=== PATIENT | female | born 1940 | race Caucasian/White ===

== ENCOUNTER → 2020-09-27 08:16 | Outpatient (CLI) | payer MEDICARE, SELFPAY ==
[2020-09-27 19:22] LABS: SARS-CoV-2 RNA PCR Negative
== END ==
PROVIDERS: PCP Internal Medicine; Visit Provider Internal Medicine Gastroenterology
DX: Z01.812 Encounter for preprocedural laboratory examination (principal); Z20.822 Contact with and (suspected) exposure to COVID-19
CPT/HCPCS: C9803; U0003; U0005

== ENCOUNTER 2020-09-30 01:41 | Day surgery (SDC) | payer MEDICARE, OTHER, SELFPAY ==
[2020-09-24 12:40] VITALS: BMI 24.5
--- NOTE | 2020-09-30 11:17 | WPDANESEPPF ---
Anes - Initial Pre Proc Eval Procedure: Operation Date: 09/30/20 11:30 Proposed Procedures p Screening Colonoscopy - Apolinar Martinez MD Date/Time: 09/30/20 11:17 Surgeon: Apolinar Martinez MD Pre Op Diagnosis: hx colon polyp Patient Data Age: 80 Gender: F Height: 5 ft 4 in Weight: 65 kg Allergies Allergy/AdvReac Type Severity Reaction Status Date / Time codeine Allergy Mild Other Verified 09/30/20 11:16 Home Medications Medication Instructions Recorded Confirmed Type aspirin 81 mg PO DAILY 09/24/20 09/30/20 History carvedilol 3.125 mg PO DAILY 09/24/20 09/30/20 History furosemide 20 mg PO DAILY 09/24/20 09/24/20 History losartan 25 mg PO BID 09/24/20 09/30/20 History Patient hx anesthesia problems: none Family hx anesthesia problems: none [facility] Past Medical History Medical History (Updated 09/30/20 @ 11:23 by Kd Gallegos MD) COPD (chronic obstructive pulmonary disease) HTN (hypertension) LITA (obstructive sleep apnea) Pacemaker Social History Social History Smoking packs per day: 1.5 Smoking cigarettes per day: 30.0 Years smoked: 24 Smoking pack-years: 36.00 Smoking status: Former smoker Tobacco type: cigarettes Living arrangements: alone Spiritual care concerns: No Anes - Eval Final PreProcedure Day of Procedure 09/30/20 11:17 Patient weight: overweight Heart: regular rate and rhythm (paced) Lungs: clear to auscultation Airway: Mallampati scale class II Neurological: alert and oriented Last oral intake: >/= 8 hours ASA classification: III Emergent: no Informed Consent: The patient's anesthetic plan and its attendant risks and benefits were discussed with the patient/family/POA. Questions were solicited and answers provided to the satisfaction of the patient/family/POA.
[2020-09-30 11:18] VITALS: BP 145/74; PULSE 94; RESP 18; TEMP 36.2; O2SAT 96; BMI 31.6
--- NOTE | 2020-09-30 11:39 | PM.HPGS ---
History of Present Illness History of Present Illness Consent: Risks, benefits, and alternatives have been discussed and questions answered. Patient agrees to proceed with procedure. Chief complaint: hx colon polyp Narrative: Anna Garrido is a 80 year old female referred for colon cancer screening. Review of Systems Review of Systems: All systems reviewed & are unremarkable except as noted in HPI and below PMFSH Past Medical History Medical History COPD (chronic obstructive pulmonary disease) HTN (hypertension) LITA (obstructive sleep apnea) Pacemaker Social History Social History Smoking packs per day: 1.5 Smoking cigarettes per day: 30.0 Years smoked: 24 Smoking pack-years: 36.00 Smoking status: Former smoker Tobacco type: cigarettes Living arrangements: alone Spiritual care concerns: No Meds Home Medications and Allergies Home Medications Medication Instructions Recorded Confirmed Type aspirin 81 mg PO DAILY 09/24/20 09/30/20 History carvedilol 3.125 mg PO DAILY 09/24/20 09/30/20 History furosemide 20 mg PO DAILY 09/24/20 09/30/20 History losartan 25 mg PO BID 09/24/20 09/30/20 History Allergies Allergy/AdvReac Type Severity Reaction Status Date / Time codeine Allergy Mild Other Verified 09/30/20 11:16 Vital Signs Vital Signs - 24 hr 09/30/20 11:18 Temperature 36.2 C L Pulse Rate 94 Respiratory Rate 18 Blood Pressure 145/74 H Pulse Oximetry 96 Exam Resp: Auscultation: clear to auscultation bilaterally Cardio: Rate: regular rate Rhythm: regular rhythm GI: GI Palp: Yes Soft to palpation and No Tenderness to palpation present (GI) Assessment and Plan Assessment and plan (1) Colon cancer screening: Code(s): Z12.11 - Encounter for screening for malignant neoplasm of colon Status: Acute Assessment and Plan: Colonoscopy with possible biopsy or polypectomy or cautery or injection of substances.
[2020-09-30] MEDS: LACTATED RINGERS 1,000 ML 150 ML IV CONT (11:47)
--- NOTE | 2020-09-30 12:27 | SUR.OPER ---
captivator 360 clip 2.8 mm log [id number], exp 07/19/23
[2020-09-30 12:32] VITALS: BP 116/57; PULSE 83; RESP 20; O2SAT 92
[2020-09-30 12:42] VITALS: BP 141/63; PULSE 80; RESP 24; O2SAT 94
[2020-09-30 12:52] VITALS: BP 144/75; PULSE 76; RESP 20; O2SAT 95
== END 2020-09-30 13:05 | disposition home or self-care (01) ==
PROVIDERS: PCP Internal Medicine; Visit Provider Internal Medicine Gastroenterology
PROC: 0DJD8ZZ Inspection of Lower Intestinal Tract, Via Natural or Artificial Opening Endoscopic (ICD-10-PCS; CPT 45378; principal; 2020-09-30 11:30)
DX: Z12.11 Encounter for screening for malignant neoplasm of colon (principal); D36.9 Benign neoplasm, unspecified site; J44.9 Chronic obstructive pulmonary disease, unspecified; I10 Essential (primary) hypertension; G47.33 Obstructive sleep apnea (adult) (pediatric); Z95.0 Presence of cardiac pacemaker; Z86.010 Personal history of colon polyps; Z87.891 Personal history of nicotine dependence
CPT/HCPCS: 45385; 88305; J2704; J7120

== ENCOUNTER 2024-03-31 13:14 | Outpatient (CLI) | payer MEDICARE, SELFPAY ==
--- NOTE | 2024-03-31 16:14 | WPDPFTINT ---
PFT Procedure Performed PFT Procedure Performed Spirometry with Pre/Post Bronchodilator Plethysmography (Lung Vol) Diffusing Cap (DLCO) Flow Vol Loop PFT Interpretation This is a pulmonary function test with pre and post-bronchodilator spirometry, plethysmography and diffusing capacity. The test was performed and results interpreted in accordance with the 2019 and 2005 ATS/ERS Task Force guidelines respectively using the Global Lung Function Initiative-2012 reference equations. Patient demonstrated good effort and cooperation. Reproducibility criteria were met. The quality of the pre bronchodilator spirometry maneuver was Grade A and post bronchodilator spirometry maneuver was Grade A. Findings: Spirometry: There is decreased maximal expiratory airflow at all lung volumes with concave expiratory flow tracing. The contour of the inspiratory flow tracing is normal. The pre bronchodilator FVC is 2.13 L, 84% predicted. The pre bronchodilator FEV1 is 0.95 L, 50% predicted. The pre bronchodilator FEV1: FVC ratio is 45%. The post bronchodilator FVC is 2.12 L, representing 1% decrease. The post bronchodilator FEV1 is 1.08 L, representing a 130 mL increase which corresponds to a 13% increase. The post bronchodilator FEV1: FVC ratio is 51%. Plethysmography: The total lung capacity is 5.62 L, 108% predicted. The functional residual capacity is 3.77 L, 125% predicted. The residual volume is 3.47 L, 139% predicted. The residual volume: Total lung capacity ratio is 62%. Diffusing capacity: The diffusing capacity unadjusted for hemoglobin and carboxyhemoglobin is 8.8, 45% predicted. The diffusing capacity adjusted for alveolar volume is 2.70, 67% predicted. Impression: There is a moderately severe obstructive abnormality. There is no significant improvement after inhaling a single dose of albuterol as the absolute increase in the FEV1 is less than 200 mL. The increase in residual volume to total lung volume ratio is consistent with hyperinflation from an obstructive abnormality. The diffusing capacity unadjusted for hemoglobin and carboxyhemoglobin is moderately decreased and normalizes when adjusted for alveolar volume. There are no prior studies for comparison
== END 2024-03-31 13:15 | disposition home or self-care (01) ==
PROVIDERS: PCP Internal Medicine; Visit Provider Internal Medicine Pulmonary Disease
DX: R94.2 Abnormal results of pulmonary function studies (principal); J44.9 Chronic obstructive pulmonary disease, unspecified
CPT/HCPCS: 94060; 94726; 94729